=== PATIENT | female | born 1975 | race Caucasian/White ===

== ENCOUNTER → 2016-11-22 | Outpatient (CLI) | payer OTHER ==
[~2016-11-22] MED LIST: COLACE100 MG PO; IRON325 MG PO; MOTRIN-DPS800 MG PO; PERCOCET 5-3251 EACH PO
== END | disposition home or self-care (01) ==
LOC: RAD.S 09:30
DX: R10.9 Unspecified abdominal pain (principal)

== ENCOUNTER 2016-11-26 09:46 | Emergency (ER) | payer OTHER ==
--- NOTE | 2016-11-30 08:56 | ER ---
ADMIT: 11/26/2016 RM/LOC: ER [facility] MR#: [id number] [address] [id number] TAMIKO MOSER [address] [place] [address] Emergency Room Report SEX: F AGE: 41 : 1975 DATE: 11/26/2016 ADDENDUM: CHIEF COMPLAINT: Nausea and vomiting with cramping and headache. HISTORY OF PRESENT ILLNESS: This is a 41-year-old female, who started having right lower quadrant pain last week. She said she does have pain usually with menstruation ever since her ectopic back in 2004, but this has been the worst pain that she has had since. She said actually the pain is improved in her abdomen, but still having some nausea with it, a little bit of pink discharge, and also has had a headache because she has not been able to sleep and has been stressed out. COURSE IN THE EMERGENCY ROOM: I gave her a liter of fluids along with Toradol, this has resolved her headache. Her abdominal pain is actually significantly improved. Her CBC has improved since previous labs. LABORATORY DATA: White count is 7.1, hemoglobin 13.1. Her urine is normal except for 2+ leukocyte esterase, two red blood cells. Culture setup will be done. Her CMP is normal. Her LFTs have returned to normal since the previous labs. There is a culture set up that is going to be done on the urine. At this time, she does not have any complaints of dysuria, we are not going to treat at this time. We will wait for her culture to return. CLINICAL IMPRESSION: Right lower quadrant abdominal pain. HANNAH Ceballos / Ori Bruno MD / beata JOB #: [id number] CC: Ori Bruno MD, Attending Physician Aurelio Harris MD, Family Physician
== END 2016-11-26 12:45 | disposition home or self-care (01) ==
LOC: ER 09:46
DX: R10.31 Right lower quadrant pain (principal); Z88.0 Allergy status to penicillin